=== PATIENT | male | born 1980 | race Caucasian/White ===

== ENCOUNTER 2017-10-20 21:06 | Inpatient (IN) | payer BC ==
[2017-10-20] MEDS ORDERED: cloNIDine HCL 0.1 MG TABLET PO (21:45)
[2017-10-20] MEDS ORDERED: chlordiazePOXIDE HCL 25 MG CAPSULE PO (21:45)
[2017-10-20] MEDS ORDERED: HALOPERIDOL LACTATE 5 MG/ML VIAL. IVP (21:45)
[2017-10-20] MEDS ORDERED: diphenhydrAMINE 50 MG/ML VIAL IVP (21:45)
[2017-10-20] MEDS ORDERED: ACETAMINOPHEN 325 MG TABLET. PO (21:45)
[2017-10-20] MEDS: FOLIC ACID 1 MG TABLET. PO (22:50)
[2017-10-20] MEDS: NICOTINE 21MG PATCH. TD (22:50)
[2017-10-20] MEDS: THIAMINE 100 MG TABLET. PO (22:50)
[2017-10-20] MEDS: MULTIVITAMIN with MINERAL TABLET. PO (22:50)
[2017-10-21] MEDS: ANTI-COAG MONITOR BY PHARMACY. MC ×2 (01:30→13:52)
[2017-10-21] MEDS: oxyCODONE/APAP 5/325 1 TAB TABLET PO ×3 (04:13→17:40)
[2017-10-21 04:39] LABS: ADD MAN DIFF? NO
[2017-10-21 05:18] LABS: BASO # 0.1 x10^3/uL (0.0-0.2); BASO % 1 % (0-3); EOS # 0.3 x10^3/uL (0.0-0.7); EOS % 3 % (0-3); HEMATOCRIT 46.8 % (39.0-53.0); HEMOGLOBIN 16.1 g/dL (13.0-17.5); LYMPH # 1.8 x10^3/uL (1.0-4.8); LYMPH % 18 % (24-48); MEAN CORPUSCULAR HEMOGLOBIN 33 pg (25-35); MEAN CORPUSCULAR HGB CONC 35 g/dL (31-37); MEAN CORPUSCULAR VOLUME 97 fL (79-100); MONO # 1.1 x10^3/uL (0.0-1.1); MONO % 11 % (0-9); NEUT # 6.8 x10^3uL (1.8-7.7); NEUT % 67 % (31-73); PLATELET COUNT 253 x10^3/uL (140-400); RED BLOOD COUNT 4.83 x10^6/uL (4.30-5.70); RED CELL DISTRIBUTION WIDTH 13.8 % (11.5-14.5); WHITE BLOOD COUNT 10.1 x10^3/uL (4.0-11.0)
[2017-10-21 05:20] LABS: INR 1.2 (0.8-1.1); PROTHROMBIN TIME PATIENT 14.5 SEC (11.7-14.0)
[2017-10-21 05:29] LABS: ANION GAP 10 (6-14); BLOOD UREA NITROGEN 11 mg/dL (8-26); CALCIUM 8.5 mg/dL (8.5-10.1); CARBON DIOXIDE 24 mmol/L (21-32); CHLORIDE 103 mmol/L (98-107); GLUCOSE 111 mg/dL (70-99); POTASSIUM 3.8 mmol/L (3.5-5.1); SODIUM 137 mmol/L (136-145)
[2017-10-21] MEDS: MULTIVITAMIN with MINERAL TABLET. PO (08:27)
[2017-10-21] MEDS: THIAMINE 100 MG TABLET. PO (08:27)
[2017-10-21] MEDS: FOLIC ACID 1 MG TABLET. PO (08:27)
[2017-10-21] MEDS: NICOTINE 21MG PATCH. TD (08:29)
[2017-10-21] MEDS: MORPHINE SULFATE 4 MG/ML DISP.SYRIN. IV ×3 (12:43→20:09)
[2017-10-21 13:21] LABS: AFPT MARKER 2.9 ng/mL (0.0-8.3)
[2017-10-22] MEDS: MORPHINE SULFATE 4 MG/ML DISP.SYRIN. IV ×5 (01:00→23:11)
[2017-10-22] MEDS: MULTIVITAMIN with MINERAL TABLET. PO (08:03)
[2017-10-22] MEDS: NICOTINE 21MG PATCH. TD (08:23)
[2017-10-22] MEDS: THIAMINE 100 MG TABLET. PO (08:23)
[2017-10-22] MEDS: FOLIC ACID 1 MG TABLET. PO (08:23)
[2017-10-22 09:01] LABS: ADD MAN DIFF? NO
[2017-10-22 09:09] LABS: BASO # 0.1 x10^3/uL (0.0-0.2); BASO % 1 % (0-3); EOS # 0.3 x10^3/uL (0.0-0.7); EOS % 2 % (0-3); HEMATOCRIT 48.2 % (39.0-53.0); HEMOGLOBIN 16.7 g/dL (13.0-17.5); LYMPH # 1.5 x10^3/uL (1.0-4.8); LYMPH % 12 % (24-48); MEAN CORPUSCULAR HEMOGLOBIN 34 pg (25-35); MEAN CORPUSCULAR HGB CONC 35 g/dL (31-37); MEAN CORPUSCULAR VOLUME 97 fL (79-100); MONO # 1.3 x10^3/uL (0.0-1.1); MONO % 11 % (0-9); NEUT # 8.9 x10^3uL (1.8-7.7); NEUT % 74 % (31-73); PLATELET COUNT 275 x10^3/uL (140-400); RED BLOOD COUNT 4.96 x10^6/uL (4.30-5.70); RED CELL DISTRIBUTION WIDTH 13.9 % (11.5-14.5)
[2017-10-22 09:25] LABS: ANION GAP 9 (6-14); BLOOD UREA NITROGEN 10 mg/dL (8-26); BUN/CREATININE RATIO 11 (6-20); CALCIUM 8.9 mg/dL (8.5-10.1); CARBON DIOXIDE 25 mmol/L (21-32); CHLORIDE 100 mmol/L (98-107); CREATININE 0.9 mg/dL (0.7-1.3); GLUCOSE 92 mg/dL (70-99); POTASSIUM 4.1 mmol/L (3.5-5.1); SODIUM 134 mmol/L (136-145)
[2017-10-22 09:32] LABS: ALBUMIN 2.9 g/dL (3.4-5.0); ALBUMIN/GLOBULIN RATIO 0.7 (1.0-1.7); ALK PHOS 113 U/L (46-116); ALT (SGPT) 74 U/L (16-63); AST (SGOT) 31 U/L (15-37); TOTAL PROTEIN 7.3 g/dL (6.4-8.2)
[2017-10-22] MEDS: oxyCODONE/APAP 5/325 1 TAB TABLET PO ×3 (11:59→22:32)
[2017-10-22] MEDS: APIXABAN 5 MG TABLET. PO ×2 (12:01→20:12)
[2017-10-22] MEDS: DOXYCYCLINE HYCLATE 100 MG TABLET PO ×2 (13:48→20:11)
[2017-10-23] MEDS: MULTIVITAMIN with MINERAL TABLET. PO (09:11)
[2017-10-23] MEDS: oxyCODONE/APAP 5/325 1 TAB TABLET PO (09:11)
[2017-10-23] MEDS: THIAMINE 100 MG TABLET. PO (09:11)
[2017-10-23] MEDS: FOLIC ACID 1 MG TABLET. PO (09:11)
[2017-10-23] MEDS: APIXABAN 5 MG TABLET. PO (09:12)
[2017-10-23] MEDS: DOXYCYCLINE HYCLATE 100 MG TABLET PO (09:12)
[2017-10-23] MEDS: NICOTINE 21MG PATCH. TD (09:12)
[2017-10-23] MEDS: MORPHINE SULFATE 4 MG/ML DISP.SYRIN. IV (09:16)
[2017-10-23] MEDS: ANTI-COAG MONITOR BY PHARMACY. MC (11:30)
[2017-10-23] MEDS ORDERED: LACTOBACILLUS RHAMNOSUS GG 1 CAPSULE. PO (21:00)
[2017-10-23] MEDS ORDERED: DOXYCYCLINE HYCLATE 100 MG TABLET PO (21:00)
[2017-10-24 14:29] LABS: ERYTHROPOIETIN LVL 5.2 mIU/mL (2.6-18.5)
[2017-10-29] MEDS ORDERED: APIXABAN 5 MG TABLET. PO (09:00)
== END 2017-10-23 14:00 | disposition home or self-care (01) | DRG 175 ==
LOC: 2 NORTH 21:06
DX: I26.09 Other pulmonary embolism with acute cor pulmonale (principal); D68.51 Activated protein C resistance; J98.11 Atelectasis; F17.210 Nicotine dependence, cigarettes, uncomplicated; F12.10 Cannabis abuse, uncomplicated; D75.1 Secondary polycythemia; K76.0 Fatty (change of) liver, not elsewhere classified; K76.1 Chronic passive congestion of liver; F10.10 Alcohol abuse, uncomplicated; Z86.718 Personal history of other venous thrombosis and embolism; Z86.711 Personal history of pulmonary embolism; Z79.01 Long term (current) use of anticoagulants; Z91.19 Patient's noncompliance with other medical treatment and regimen; Z91.14 Patient's other noncompliance with medication regimen
CPT/HCPCS: 36415; 71045; 71046; 76700; 80048; 80053; 82105; 82668; 85025; 85610; 93306; 93970; 99406; J1650; J2060; J2270